=== PATIENT | male | born 1995 | race Caucasian/White ===

== ENCOUNTER 2023-03-07 10:18 | Emergency (ER) | payer MEDICAID ==
[~2023-03-07] VITALS: Ht 188 cm; Wt 68.0 kg
[2023-03-07 10:19] VITALS: BP_SYST 118; PULSE 90; RESP 20; TEMP 98; O2SAT 99
[2023-03-07] MEDS ORDERED: DIPHTH,PERTUSS(ACELL),TET VAC 0.5 ML VIAL (Tdap) I.M. ONE (10:45)
[2023-03-07] MEDS ORDERED: BACITRACIN 1 GM OINT TP ONE (10:45)
[2023-03-07 11:10] VITALS: BP_SYST 118; PULSE 90; RESP 20; TEMP 98; O2SAT 99
[2023-03-07] MEDS ORDERED: cefTRIAXone 1 GM in LIDOCAINE 1%, 20 ML MDV 2.1 ML IM ONE (11:15)
[2023-03-07] MEDS ORDERED: IBUP-1971 PO (11:26)
[2023-03-07] MEDS ORDERED: CEPH-548 PO (11:27)
[2023-03-07] MEDS ORDERED: HYDR-3927 PO (11:27)
== END 2023-03-07 11:30 | disposition home or self-care (01) ==
LOC: SED 10:18
DX: S92.411B Displaced fracture of proximal phalanx of right great toe, initial encounter for open fracture (principal); Z79.899 Other long term (current) drug therapy; W23.1XXA Caught, crushed, jammed, or pinched between stationary objects, initial encounter; Y93.89 Activity, other specified; Y92.89 Other specified places as the place of occurrence of the external cause; Y99.8 Other external cause status
CPT/HCPCS: 99283